=== PATIENT | female | born 1985 | race African-American/Black ===

== ENCOUNTER 2016-09-20 11:45 | Emergency (ER) | payer MEDICAID, OTHER ==
[~2016-09-20] VITALS: Ht 162.6 cm; Wt 54.4 kg
[~2016-09-20 11:45] MED LIST: XANAX2 MG ORAL
[2016-09-20 12:20] VITALS: BP 132/96
[2016-09-20 12:58] VITALS: BP 132/96
--- NOTE | 2016-09-20 16:10 | Emergency Room Report ---
History of Present Illness General Chief Complaint: General Complaint Source: Patient Present Illness HPI The patient is a 30-year-old female presenting for possible anxiety. The patient has locked herself in the restroom multiple times. The patient has eloped before being able to evaluate her. Allergies: Coded Allergies: HYDROMORPHONE (Unverified Allergy, Unknown, 07/07/15) MEPERIDINE (Unverified Allergy, Unknown, 07/07/15) ZIPRASIDONE (Unverified Allergy, Unknown, 09/22/15) Patient History Now: No Reviewed Nursing Documentation: PMH: Agreed, PSxH: Agreed Nursing Documentation-PMH Hx Asthma: Yes History Of Psychiatric Problem: Yes - ANXIETY Physical Exam Vital Signs Date Time Temp Pulse Resp B/P Pulse Ox O2 Delivery O2 Flow Rate FiO2 09/20/16 11:52 97.9 92 16 132/96 98 Room Air Medical Decision Making PA Attestation Dr. Way is my supervising physician. Patient management was discussed with my supervising physician Diagnostic Impression: Primary Impression: Encounter for generalized patient complaints ER Course The patient is a 30-year-old female presenting for possible anxiety. The patient has locked herself in the restroom multiple times. The patient has eloped before being able to evaluate her. Last Vital Signs Date Time Temp Pulse Resp B/P Pulse Ox O2 Delivery O2 Flow Rate FiO2 09/20/16 12:58 97.9 69 16 132/96 98 Room Air Disposition: ELOPED Condition: Stable Referrals: NOT CHOSEN IPA/,REFERRING (PCP) VALERIE ROCHA Sep 20, 2016 16:10
== END 2016-09-20 13:00 | disposition left against medical advice (07) ==
LOC: EDBD 11:45 → EMR 12:30
DX: Z04.8 Encounter for examination and observation for other specified reasons (principal); Z53.21 Procedure and treatment not carried out due to patient leaving prior to being seen by health care provider

== ENCOUNTER 2016-09-20 13:04 | Emergency (ER) | payer MEDICAID ==
[~2016-09-20] VITALS: Ht 160 cm; Wt 54.4 kg
[2016-09-20 13:54] VITALS: BP 132/78
[2016-09-20 13:55] VITALS: BP 132/78
--- NOTE | 2016-09-20 16:11 | Emergency Room Report ---
History of Present Illness General Chief Complaint: General Complaint Source: Patient Present Illness HPI The patient is a 30-year-old female presenting for possible anxiety. The patient has locked herself in the restroom multiple times. The patient has eloped before being able to evaluate her. This is the second time the patient has done this today Allergies: Coded Allergies: HYDROMORPHONE (Unverified Allergy, Unknown, 07/07/15) MEPERIDINE (Unverified Allergy, Unknown, 07/07/15) ZIPRASIDONE (Unverified Allergy, Unknown, 09/22/15) Patient History Now: No Reviewed Nursing Documentation: PMH: Agreed, PSxH: Agreed Nursing Documentation-PMH Hx Cardiac Problems: No Hx Hypertension: No Hx Pacemaker: No Hx Asthma: No Hx COPD: No Hx Diabetes: No Hx Cancer: No Hx Gastrointestinal Problems: No Hx Dialysis: No History Of Psychiatric Problem: Yes - anxiety Hx Neurological Problems: No Hx Cerebrovascular Accident: No Hx Seizures: No Physical Exam Vital Signs Date Time Temp Pulse Resp B/P Pulse Ox O2 Delivery O2 Flow Rate FiO2 09/20/16 13:05 97.9 98 16 132/78 100 Room Air Medical Decision Making PA Attestation Dr. Way is my supervising physician. Patient management was discussed with my supervising physician Diagnostic Impression: Primary Impression: Encounter for generalized patient complaints ER Course The patient is a 30-year-old female presenting for possible anxiety. The patient has locked herself in the restroom multiple times. The patient has eloped before being able to evaluate her. This is the second time the patient has done this today Last Vital Signs Date Time Temp Pulse Resp B/P Pulse Ox O2 Delivery O2 Flow Rate FiO2 09/20/16 13:55 97.9 70 16 132/78 100 Room Air Disposition: ELOPED Condition: Stable Referrals: NOT CHOSEN IPA/,REFERRING (PCP) AVLERIE ROCHA Sep 20, 2016 16:11
== END 2016-09-20 13:56 | disposition left against medical advice (07) ==
LOC: EMR 13:28
DX: Z04.8 Encounter for examination and observation for other specified reasons (principal); Z53.21 Procedure and treatment not carried out due to patient leaving prior to being seen by health care provider

== ENCOUNTER 2016-09-20 14:40 | Emergency (ER) | payer MEDICAID ==
[~2016-09-20] VITALS: Ht 162.6 cm; Wt 54.4 kg
--- NOTE | 2016-09-20 14:48 | Emergency Room Report ---
History of Present Illness General Chief Complaint: General Complaint Source: EMS Present Illness HPI This is the third time today the patient presents emergency department. Each time she walked out. This time she was brought in by 911. Apparently she gives a history of taking either cocaine or amphetamine. The patient's been exhibiting bizarre behavior. I was able to observe the patient before she walked out of the emergency department kicking door. She walked out 3 times before. While here before, she locked herself in the bathroom and we had to have security open the door. In 2014, she was treated for an overdose of "spice" and seroquel. At that time she denied SI or HI. Last (09/2015) year she presented and left before being triaged. Allergies: Coded Allergies: HYDROMORPHONE (Unverified Allergy, Unknown, 07/07/15) MEPERIDINE (Unverified Allergy, Unknown, 07/07/15) ZIPRASIDONE (Unverified Allergy, Unknown, 09/22/15) Patient History Past Medical History: see triage record Social History: Reports: drug use Last Menstrual Period: unknown Reviewed Nursing Documentation: PMH: Agreed, PSxH: Agreed Nursing Documentation-PMH Past Medical History: No Stated History Hx Cardiac Problems: No Hx Hypertension: No Hx Pacemaker: No Hx Asthma: No Hx COPD: No Hx Diabetes: No Hx Cancer: No Hx Gastrointestinal Problems: No Hx Dialysis: No History Of Psychiatric Problem: No Hx Neurological Problems: No Hx Cerebrovascular Accident: No Hx Seizures: No Review of Systems All Other Systems: limited Physical Exam Vital Signs Date Time Temp Pulse Resp B/P Pulse Ox O2 Delivery O2 Flow Rate FiO2 09/20/16 14:41 98.1 88 16 128/88 99 Room Air Sp02 EP Interpretation: reviewed, normal General Appearance: no apparent distress, alert, other - agitated Eyes: bilateral eye PERRL, bilateral eye other ENT: moist mucus membranes Neurologic: alert, normal gait, other - some waving of arms Psychiatric: other - angry and somewhat paranoid. Will not answer questions Skin: normal color Medical Decision Making Diagnostic Impression: Primary Impression: [facility] ER Course Patient ran out of ED before further evaluation. Last Vital Signs Date Time Temp Pulse Resp B/P Pulse Ox O2 Delivery O2 Flow Rate FiO2 09/20/16 14:41 98.1 88 16 128/88 99 Room Air Disposition: ELOPED Ricarda,Boris M.D. Sep 20, 2016 14:48
[2016-09-20 15:00] VITALS: BP 128/88
== END 2016-09-20 15:00 | disposition left against medical advice (07) ==
LOC: EDBD 14:40 → EMR 14:50
DX: Z04.8 Encounter for examination and observation for other specified reasons (principal); Z53.21 Procedure and treatment not carried out due to patient leaving prior to being seen by health care provider

== ENCOUNTER 2016-09-20 16:04 | Emergency (ER) | payer MEDICAID ==
--- NOTE | 2016-09-20 18:18 | Emergency Room Report ---
History of Present Illness General Source: Patient Present Illness HPI Patient again called 911. When here, ran out of ED. This is my previous history: This is the third time today the patient presents emergency department. Each time she walked out. This time she was brought in by 911. Apparently she gives a history of taking either cocaine or amphetamine. The patient's been exhibiting bizarre behavior. I was able to observe the patient before she walked out of the emergency department kicking door. She walked out 3 times before. While here before, she locked herself in the bathroom and we had to have security open the door. In 2014, she was treated for an overdose of "spice" and seroquel. At that time she denied SI or HI. Last (09/2015) year she presented and left before being triaged. Allergies: Coded Allergies: HYDROMORPHONE (Unverified Allergy, Unknown, 07/07/15) MEPERIDINE (Unverified Allergy, Unknown, 07/07/15) ZIPRASIDONE (Unverified Allergy, Unknown, 09/22/15) Patient History Past Medical History: see triage record Social History: Reports: drug use Social History Narrative apparently lives in an apartment on [address]. Reviewed Nursing Documentation: PMH: Agreed, PSxH: Agreed Nursing Documentation-PMH Hx Cardiac Problems: No Hx Hypertension: No Hx Pacemaker: No Hx Asthma: No Hx COPD: No Hx Diabetes: No Hx Cancer: No Hx Gastrointestinal Problems: No Hx Dialysis: No Hx Neurological Problems: No Hx Cerebrovascular Accident: No Hx Seizures: No Review of Systems All Other Systems: limited Physical Exam See VS from last visit Paramedics also took VS when patient arrived Sp02 EP Interpretation: reviewed, normal Eyes: bilateral eye Scleral Injection ENT: moist mucus membranes Neurologic: alert, normal gait Psychiatric: anxious - somewhat paranoid Medical Decision Making Diagnostic Impression: Primary Impression: [facility] ER Course Patient left before evaluation. EKG Diagnostic Results Rate: normal Rhythm: NSR ST Segments: no acute changes Rhythm Strip Diag. Results EP Interpretation: yes Rhythm: NSR, no PVC's, no ectopy, other - from EMS EKG Disposition: ELOPED Referrals: NOT CHOSEN IPA/,REFERRING (PCP) Boris Chowdary M.D. Sep 20, 2016 18:18
== END 2016-09-20 16:30 | disposition left against medical advice (07) ==
LOC: EDBD 16:04 → EMR 16:10
DX: Z04.8 Encounter for examination and observation for other specified reasons (principal); Z53.21 Procedure and treatment not carried out due to patient leaving prior to being seen by health care provider

== ENCOUNTER 2017-06-12 07:37 | Emergency (ER) | payer MEDICAID ==
[~2017-06-12] VITALS: Ht 167.6 cm; Wt 77.6 kg
--- NOTE | 2017-06-12 07:46 | Emergency Room Report ---
History of Present Illness General Source: Patient, EMS Present Illness HPI 31-year-old female reportedly with history of lupus and sickle cell, multiple visits to the emergency room in which she'll loped and exhibited bizarre behavior, homeless, brought by EMS after she called 911 complaining of chest pain. Upon arrival patient drowsy, and not cooperating with history taking, wanting to sleep, mumbling, when asked if she has chest pain she said yes, states it has been there for 2 hours however not complaining of chest pain currently. Not diaphoretic not short of breath. No SI or HI. Not cooperating with other parts of the history taking Allergies: Coded Allergies: HYDROMORPHONE (Unverified Allergy, Unknown, 07/07/15) MEPERIDINE (Unverified Allergy, Unknown, 07/07/15) ZIPRASIDONE (Unverified Allergy, Unknown, 09/22/15) Patient History Past Medical History: see triage record Past Surgical History: unable to obtain Pertinent Family History: unable to obtain Reviewed Nursing Documentation: PMH: Agreed, PSxH: Agreed Nursing Documentation-PMH Hx Cardiac Problems: No Hx Hypertension: No Hx Pacemaker: No Hx Asthma: No Hx COPD: No Hx Diabetes: No Hx Cancer: No Hx Gastrointestinal Problems: No Hx Dialysis: No Hx Neurological Problems: No Hx Cerebrovascular Accident: No Hx Seizures: No Review of Systems All Other Systems: negative except mentioned in HPI Physical Exam Sp02 EP Interpretation: reviewed, normal General Appearance: GCS 15, non-toxic, other - Disheveled young female, sleeping however arousable, not in acute distress Head: normocephalic, atraumatic Eyes: bilateral eye normal inspection, bilateral eye PERRL, bilateral eye EOMI ENT: normal ENT inspection, normal pharynx, normal voice, moist mucus membranes Neck: normal inspection, full range of motion, supple Respiratory: normal inspection, lungs clear, normal breath sounds, no respiratory distress, no retraction, no wheezing, speaking full sentences, chest symmetrical Cardiovascular #1: normal inspection, regular rate, rhythm, no edema, normal capillary refill Cardiovascular #2: 2+ radial (R), 2+ radial (L) Gastrointestinal: normal inspection, non tender, soft, non-distended, no guarding Musculoskeletal: normal inspection, back normal, normal range of motion, non- tender Neurologic: normal inspection, alert, oriented x3, responsive, motor strength/ tone normal, sensory intact, normal gait, speech normal Psychiatric: other - ANO x4 however bizarre behavior, mumbling, no SI HI Skin: normal inspection, normal color, no rash, warm/dry, well hydrated, normal turgor Medical Decision Making Diagnostic Impression: Primary Impression: Drug use Additional Impression: Chest pain ER Course 31-year-old female p/w CP DDX: Likely meth/ drug-related,. Low risk for a ACS Patient also homeless and stating she wants to sleep Plan: IV access, obtain labs including troponin, EKG, CXR ER course: Labs: troponin negative Patient remained chest pain free during ED stay. Always sleeping comfortably. Walked out of ED listening to loud music. Disposition: Patient will be discharged to home. Strict precautions discussed with patient on when to emergently return to the ED : this includes worsening/severe chest pain, palpitations, shortness of breath, syncopal episodes, fever or chills, which may indicate severe illness. Patient verbalized understanding. Patient instructed to follow up with their PMD within the next 1 week Please note that this Emergency Department Report was dictated using Messagem[employer]psychodramat[employer] technology software, occasionally this can lead to erroneous entry secondary to interpretation by the dictation equipment. EKG Diagnostic Results EP Interpretation: Yes Rate: normal Rhythm: NSR ST Segments: No acute changes ASA given to patient: Yes Rhythm Strip EP Interpretation: Yes Rate: 70 Rhythm: NSR, no PVCs, no ectopy Chest X-ray CXR: Ordered: Yes 1 view Indication: Chest pain EP interpretation: Yes Interpretation: No consolidation, no effusion, no PTX, no acute cardiopulmonary disease Impression: No acute disease Electronically signed by Bonny Parker MD Laboratory Tests Test 06/12/17 07:30 06/12/17 10:30 White Blood Count 6.2 K/UL (4.8-10.8) Red Blood Count 3.32 M/UL (4.20-5.40) L Hemoglobin 9.7 G/DL (12.0-16.0) L Hematocrit 30.7 % (37.0-47.0) L Mean Corpuscular Volume 92 FL (80-99) Mean Corpuscular Hemoglobin 29.0 PG (27.0-31.0) Mean Corpuscular Hemoglobin Concent 31.5 G/DL (32.0-36.0) L Red Cell Distribution Width 14.5 % (11.6-14.8) Platelet Count 281 K/UL (150-450) Mean Platelet Volume 5.7 FL (6.5-10.1) L Neutrophils (%) (Auto) 68.8 % (45.0-75.0) Lymphocytes (%) (Auto) 19.1 % (20.0-45.0) L Monocytes (%) (Auto) 10.0 % (1.0-10.0) Eosinophils (%) (Auto) 1.3 % (0.0-3.0) Basophils (%) (Auto) 0.7 % (0.0-2.0) Sodium Level 134 MMOL/L (136-145) L Potassium Level 3.1 MMOL/L (3.5-5.1) L Chloride Level 102 MMOL/L (98-107) Carbon Dioxide Level 25 MMOL/L (21-32) Anion Gap 8 (5-15) Blood Urea Nitrogen 17 mg/dL (7-18) Creatinine 0.8 MG/DL (0.55-1.30) Estimate Glomerular Filtration Rate > 60 mL/min (>60) Glucose Level 81 MG/DL (74-106) Calcium Level 8.7 MG/DL (8.5-10.1) Total Bilirubin 0.5 MG/DL (0.2-1.0) Aspartate Amino Transferase (AST) 23 U/L (15-37) Alanine Aminotransferase (ALT) 22 U/L (12-78) Alkaline Phosphatase 55 U/L (46-116) Total Creatine Kinase 374 U/L (26-308) H Creatine Kinase MB 3.9 NG/ML (0.0-3.6) H Creatine Kinase MB Relative Index 1.0 Troponin I 0.017 ng/mL (0.000-0.056) Pro-B-Type Natriuretic Peptide 18 (0-125) Total Protein 8.4 G/DL (6.4-8.2) H Albumin 3.5 G/DL (3.4-5.0) Globulin 4.9 g/dL Albumin/Globulin Ratio 0.7 (1.0-2.7) L Serum Alcohol < 3 mg/dL Urine HCG, Qualitative Negative Urine Opiates Screen Negative (NEGATIVE) Urine Barbiturates Screen Negative (NEGATIVE) Phencyclidine (PCP) Screen Negative (NEGATIVE) Urine Amphetamines Screen Positive (NEGATIVE) H Urine Benzodiazepines Screen Negative (NEGATIVE) Urine Cocaine Screen Positive (NEGATIVE) H Urine Marijuana (THC) Screen Negative (NEGATIVE) Disposition: HOME, SELF-CARE Condition: Bonny Emerson M.D. Jun 12, 2017 07:46
[2017-06-12 07:51] VITALS: BP 125/78
[2017-06-12 07:58] LABS: BASOPHILS % (AUTO) 0.7 % (0.0-2.0); EOSINOPHILS % (AUTO) 1.3 % (0.0-3.0); LYMPHOCYTES % (AUTO) 19.1 % (20.0-45.0); MEAN CORPUSCULAR HGB CONC 31.5 G/DL (32.0-36.0); MEAN CORPUSCULAR VOLUME 92 FL (80-99); MEAN PLATELET VOLUME 5.7 FL (6.5-10.1); NEUTROPHILS % (AUTO) 68.8 % (45.0-75.0); PLATELET COUNT 281 K/UL (150-450); RED BLOOD COUNT 3.32 M/UL (4.20-5.40); RED CELL DISTRIBUTION WIDTH 14.5 % (11.6-14.8); WHITE BLOOD COUNT 6.2 K/UL (4.8-10.8)
[2017-06-12 08:50] LABS: ALANINE AMINOTRANSFERASE 22 U/L (12-78); ALBUMIN/GLOBULIN RATIO 0.7 (1.0-2.7); ANION GAP 8 (5-15); ASPARTATE AMINO TRANSFERASE 23 U/L (15-37); CALCIUM 8.7 MG/DL (8.5-10.1); CARBON DIOXIDE 25 MMOL/L (21-32); CHLORIDE 102 MMOL/L (98-107); CKMB 3.9 NG/ML (0.0-3.6); CREATININE 0.8 MG/DL (0.55-1.30); GLOMERULAR FILTRATION RATE > 60 mL/min (>60); POTASSIUM 3.1 MMOL/L (3.5-5.1); SODIUM 134 MMOL/L (136-145); TOTAL PROTEIN 8.4 G/DL (6.4-8.2)
[2017-06-12 08:51] LABS: ALCOHOL < 3 mg/dL
[2017-06-12 10:09] VITALS: BP 104/66
--- NOTE | 2017-06-12 11:34 | Diagnostic Imaging Report ---
Indication: Chest pain Technique: One view of the chest Comparison: 09/22/2015 Findings: Lungs and pleural spaces are clear. Heart size is normal . Findings are unchanged Impression: No acute process
[2017-06-12 11:38] VITALS: BP 96/57
[2017-06-12 11:41] VITALS: BP 104/66
--- NOTE | 2017-06-13 23:04 | Cardiology Report ---
APPROVED REPORT EKG Measurement Heart [id number] Normal sinus rhythm with sinus arrhythmia Normal ECG
== END 2017-06-12 11:51 | disposition home or self-care (01) ==
LOC: EDBD 07:37 → EMR 07:52
DX: F19.90 Other psychoactive substance use, unspecified, uncomplicated (principal); R07.9 Chest pain, unspecified
CPT/HCPCS: 36415; 71010; 80053; 80300; 80329; 81025; 82550; 82553; 83880; 84484; 85025; 93005; 99284